=== PATIENT | male | born 1985 | race African-American/Black ===

== ENCOUNTER 2017-12-27 13:51 | Emergency (ER) | payer OTHER ==
[2017-12-27] MEDS ORDERED: IBUPROFEN 800 MG TABLET PO ONE (15:39)
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
[2017-12-27 16:08] VITALS: BP 117/67
== END 2017-12-27 16:06 | disposition home or self-care (01) ==
LOC: ER 13:51
DX: S29.012A Strain of muscle and tendon of back wall of thorax, initial encounter (principal); V49.50XA Passenger injured in collision with unspecified motor vehicles in traffic accident, initial encounter; F17.210 Nicotine dependence, cigarettes, uncomplicated; Z71.6 Tobacco abuse counseling
CPT/HCPCS: 99283; 99406

== ENCOUNTER 2018-11-19 13:00 | Emergency (ER) | payer OTHER ==
[2018-11-19] MEDS ORDERED: METOCLOPRAMIDE HCL INJ/PF 10 MG/2 ML SDV IM ONE (14:09)
[2018-11-19] MEDS ORDERED: DICYCLOMINE HCL INJ 20 MG/2 ML AMPULE IM ONE (14:09)
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
[2018-11-19 14:36] LABS: ABSOLUTE EOSINOPHILS # (AUTO) 0.1 10^3/uL (0.0-0.6); ABSOLUTE LYMPHOCYTES (AUTO) 1.3 10^3/uL (0.5-4.7); ABSOLUTE MONOCYTES (AUTO) 0.4 10^3/uL (0.1-1.4); ABSOLUTE NEUT (AUTO) 6.3 10^3/uL (1.7-8.2); BASOPHILS % (AUTO) 0.6 % (0-2); EOSINOPHILS % (AUTO) 0.7 % (0-6); HEMATOCRIT 49.9 % (37.9-51.0); HEMOGLOBIN 17.3 g/dL (13.5-17.0); LYMPHOCYTES % (AUTO) 16.3 % (13-45); MEAN CORPUSCULAR HEMOGLOBIN 31.6 pg (27.0-33.4); MEAN CORPUSCULAR HGB CONC 34.6 g/dL (32.0-36.0); MEAN CORPUSCULAR VOLUME 91 fl (80-97); MONOCYTES % (AUTO) 5.1 % (3-13); PLATELET COUNT 314 10^3/uL (150-450); RED BLOOD COUNT 5.47 10^6/uL (4.35-5.55); RED CELL DISTRIBUTION WIDTH 13.4 % (11.5-14.0); SEGMENTED NEUTROPHILS % (AUTO) 77.3 % (42-78); TOTAL CELLS COUNTED % (AUTO) 100 %; WHITE BLOOD COUNT 8.2 10^3/uL (4.0-10.5)
[2018-11-19 14:54] LABS: ALANINE AMINOTRANSFERASE 33 U/L (21-72); ALBUMIN 4.8 g/dL (3.5-5.0); ALKALINE PHOSPHATASE 92 U/L (38-126); ANION GAP 14 (5-19); ASPARTATE AMINO TRANSFERASE 22 U/L (17-59); BILIRUBIN,DIRECT 0.3 mg/dL (0.0-0.4); BILIRUBIN,TOTAL 0.8 mg/dL (0.2-1.3); BLOOD UREA NITROGEN 14 mg/dL (7-20); CALCIUM 10.3 mg/dL (8.4-10.2); CARBON DIOXIDE 25 mmol/L (22-30); CHLORIDE 99 mmol/L (98-107); GLUCOSE 115 mg/dL (75-110); LIPASE 51.2 U/L (23-300); POTASSIUM 4.6 mmol/L (3.6-5.0); SODIUM 138.2 mmol/L (137-145); TOTAL PROTEIN 8.6 g/dL (6.3-8.2)
[2018-11-19] MEDS ORDERED: NORMAL SALINE 1000 ML 1,000 ML IV ONE (14:55)
[2018-11-19] MEDS ORDERED: ONDANSETRON HCL INJ/PF 4 MG/2 ML SDV IV ONE (15:11)
[2018-11-19] MEDS ORDERED: FAMOTIDINE INJ/PF 20 MG/2 ML SDV IV ONE (15:11)
[2018-11-19] MEDS ORDERED: SUCRALFATE SUSP 1 GM/10 ML UDCUP PO ONE (15:12)
--- NOTE | 2018-11-19 15:39 | ER Document Report ---
ED General - General Chief Complaint: Vomiting Stated Complaint: VOMITING Time Seen by Provider: 11/19/18 14:05 Notes: Patient is a 33-year-old male presents to the emergency department complaining of generalized abdominal pains for the last 2 days. Patient states he has a total of 4 episodes of vomiting today nonbloody. Patient denies any diarrhea, fever, dysuria, trauma or injury to his abdomen. Patient states his girlfriend is also at home with similar vomiting symptoms. Past medical history: None Medications: None Allergies: None Surgical history: None TRAVEL OUTSIDE OF THE [place] IN LAST 30 DAYS: No - Related Data Allergies/Adverse Reactions: No Known Allergies Allergy (Verified 11/19/18 14:55) Past Medical History - General Information source: Patient - Social History Smoking Status: Current Every Day Smoker Chew tobacco use (# tins/day): No Frequency of alcohol use: None Drug Abuse: None Family History: None. denies: Arthritis, CAD, COPD, CVA, DM, Hyperlipidemia, Hypertension, Malignancy, Thyroid Disfunction Patient has suicidal ideation: No Patient has homicidal ideation: No Renal/ Medical History: Denies: Hx Peritoneal Dialysis GI Medical History: Reports: Hx Gastroesophageal Reflux Disease Musculoskeletal Medical History: Reports Hx Musculoskeletal Trauma - Fractured right arm Traumatic Medical History: Reports: Hx Fractures - Right arm Infectious Medical History: Denies: Hx MRSA Past Surgical History: Reports: Hx Orthopedic Surgery - R arm both bones broken - Immunizations Immunizations up to date: Yes Hx Diphtheria, Pertussis, Tetanus Vaccination: Yes Review of Systems - Review of Systems Constitutional: See HPI EENT: No symptoms reported Cardiovascular: No symptoms reported Respiratory: No symptoms reported Gastrointestinal: See HPI Genitourinary: See HPI Male Genitourinary: No symptoms reported Musculoskeletal: No symptoms reported Skin: No symptoms reported Hematologic/Lymphatic: No symptoms reported Neurological/Psychological: No symptoms reported Physical Exam - Vital signs Vitals: Temp Pulse Resp BP Pulse Ox 98.2 F 73 20 140/83 H 100 11/19/18 13:43 11/19/18 13:43 11/19/18 13:43 11/19/18 13:43 11/19/18 13:43 - Notes Notes: GENERAL: Alert, interacts well. Actively vomiting HEAD: Normocephalic, atraumatic. EYES: Pupils equal, round, and reactive to light. Extraocular movements intact. ENT: Oral mucosa moist, tongue midline. NECK: Full range of motion. Supple. Trachea midline. LUNGS: Clear to auscultation bilaterally, no wheezes, rales, or rhonchi. No respiratory distress. HEART: Regular rate and rhythm. No murmur ABDOMEN: Soft, Non-distended. Bowel sounds present in all 4 quadrants. No Kemp sign noted, no McBurney's point tenderness. Patient does have left upper quadrant pain upon palpation Minor epigastric pain upon palpation. EXTREMITIES: Moves all 4 extremities spontaneously. No edema, normal radial and dorsalis pedis pulses bilaterally. No cyanosis. BACK: no cervical, thoracic, lumbar midline tenderness. No saddle anesthesia, normal distal neurovascular exam. No CVA tenderness bilaterally NEUROLOGICAL: Alert and oriented x3. Normal speech. cranial nerves II through XII grossly intact PSYCH: Normal affect, normal mood. SKIN: Warm, dry, normal turgor. No rashes or lesions noted. Course - Re-evaluation Re-evalutation: 11/19/18 15:38 Patient was given Bentyl and Reglan by the [facility] provider. Upon my examination patient is actively vomiting. Zofran ordered along with other treatment modalities. Will reassess. 11/19/18 18:06 After Zofran, Carafate, Pepcid patient has had no more further episodes of vomiting. After medication and fluid administration he states he feels overall better. Discussed home use of Zofran and Carafate, follow-up with primary care provider. Patient stable for discharge. 11/19/18 18:10 Patient's labs show no signs of leukocytosis, no signs of anemia, no elevation in patient's lipase. Patient's labs also show no abnormalities with his sodium or potassium. - Vital Signs Vital signs: Temp Pulse Resp BP Pulse Ox 98.2 F 73 20 140/83 H 100 11/19/18 13:43 11/19/18 13:43 11/19/18 13:43 11/19/18 13:43 11/19/18 13:43 - Laboratory Result Diagrams: 11/19/18 14:23 11/19/18 14:23 Laboratory results interpreted by me: 11/19/18 11/19/18 14:23 14:23 Hgb 17.3 H Glucose 115 H Calcium 10.3 H Total Protein 8.6 H Discharge - Discharge Clinical Impression: Vomiting Qualifiers: Vomiting type: unspecified Vomiting Intractability: non-intractable Nausea presence: with nausea Qualified Code(s): R11.2 - Nausea with vomiting, unspecified Abdominal pain Qualifiers: Abdominal location: left upper quadrant Qualified Code(s): R10.12 - Left upper quadrant pain Gastritis Qualifiers: Gastritis type: unspecified gastritis Chronicity: acute Gastritis bleeding: presence of bleeding unspecified Qualified Code(s): K29.00 - Acute gastritis without bleeding Condition: Stable Disposition: HOME, SELF-CARE Instructions: Antinausea Medication ([facility]), Abdominal Pain ([facility]), Intravenous (IV) Fluids ([facility]), Vomiting ([facility]) Additional Instructions: As we discussed you have been seen and treated in the emergency department for your vomiting and upper left quadrant abdominal pain. This is likely due to gastritis. Please take medications as prescribed. Please try to stay well- hydrated. His follow-up with your primary care provider in the next 24 hours. Please return to the emergency room for any other concerning symptoms Prescriptions: Ondansetron HCl [Zofran 4 mg Tablet] 1 - 2 tab PO Q4H PRN #15 tablet PRN Reason: Sucralfate [Carafate 1 gm Tablet] 1 gm PO QID #20 tablet
[2018-11-19 18:19] VITALS: BP 140/85
== END 2018-11-19 18:41 | disposition home or self-care (01) ==
LOC: ER 13:00
DX: K29.00 Acute gastritis without bleeding (principal); R11.2 Nausea with vomiting, unspecified; R10.12 Left upper quadrant pain; R10.84 Generalized abdominal pain; F17.200 Nicotine dependence, unspecified, uncomplicated
CPT/HCPCS: 99284; 96372; 96361; 96374; 96375; 36415; 83690; 85025; 80053; J0500; J2765; J2405; J7030; S0028

== ENCOUNTER 2019-11-16 10:30 | Emergency (ER) | payer SELFPAY ==
--- NOTE | 2019-11-16 11:31 | ER Document Report ---
HPI - HPI Time Seen by Provider: 11/16/19 11:25 Pain Level: 5 Context: Patient is a 34-year-old male who presents to the emergency department with a chief complaint of a sore throat. His sore throat started yesterday. This morning he woke up and noticed some white spots on his tonsils. He denies any fever, cough, congestion, or any other symptoms. Denies any past medical history. - EENT EENT: REPORTS: Sore Throat, Congestion. DENIES: Ear Pain, Nasal Drainage-Clear, Nasal Drainage-Purulent, Eye problems - NEURO Neurology: DENIES: Headache - CARDIOVASCULAR Cardiovascular: DENIES: Chest pain - RESPIRATORY Respiratory: DENIES: Trouble Breathing, Coughing - GASTROINTESTINAL Gastrointestinal: DENIES: Nausea, Patient vomiting - REPRODUCTIVE Reproductive: DENIES: : - MUSCULOSKELETAL Musculoskeletal: DENIES: Extremity pain - DERM Skin Color: Normal Skin Problems: None Past Medical History - Social History Smoking Status: Current Every Day Smoker Chew tobacco use (# tins/day): No Frequency of alcohol use: None Drug Abuse: None Family History: None. denies: Arthritis, CAD, COPD, CVA, DM, Hyperlipidemia, Hypertension, Malignancy, Thyroid Disfunction Patient has suicidal ideation: No Patient has homicidal ideation: No Renal/ Medical History: Denies: Hx Peritoneal Dialysis GI Medical History: Reports: Hx Gastroesophageal Reflux Disease Musculoskeletal Medical History: Reports Hx Musculoskeletal Trauma - Fractured right arm Traumatic Medical History: Reports: Hx Fractures - Right arm Infectious Medical History: Denies: Hx MRSA Past Surgical History: Reports: Hx Orthopedic Surgery - R arm both bones broken - Immunizations Immunizations up to date: Yes Hx Diphtheria, Pertussis, Tetanus Vaccination: Yes Vertical Provider Document - CONSTITUTIONAL Agree With Documented VS: Yes Exam Limitations: No Limitations General Appearance: No Apparent Distress - INFECTION CONTROL TRAVEL OUTSIDE OF THE [place] IN LAST 30 DAYS: No - HEENT HEENT: Atraumatic, Normocephalic, PERRLA, Pharyngeal Exudate, Pharyngeal Tenderness, Pharyngeal Erythema. negative: Conjuctival Injection, Tympanic Membrane Red, Tympanic Membrane Bulging - NECK Neck: Normal Inspection - RESPIRATORY Respiratory: Breath Sounds Normal, No Respiratory Distress - CARDIOVASCULAR Cardiovascular: Regular Rhythm Pulses: Normal: Radial - MUSCULOSKELETAL/EXTREMETIES Musculoskeletal/Extremeties: FROM - NEURO Level of Consciousness: Awake, Alert, Appropriate - DERM Integumentary: Warm, Dry, No Rash Course - Re-evaluation Re-evalutation: Presentation of several days of sore throat in an otherwise well-appearing patient. Rapid strep is positive. History and exam are not consistent with a retropharyngeal abscess or peritonsillar abscess. Airway is patent. No difficulty handling oral secretions. Vitals within normal limits. Patient has been treated with an IM dose of penicillin and Decadron. At this time will discharge with return precautions and follow-up recommendations. Verbal disch arge instructions given a the bedside and opportunity for questions given. Medication warnings reviewed. Patient is in agreement with this plan and has verbalized understanding of return precautions and the need for primary care follow-up in the nex - Vital Signs Vital signs: Temp Pulse Resp BP Pulse Ox 98.4 F 84 16 144/78 H 99 11/16/19 10:43 11/16/19 10:43 11/16/19 10:43 11/16/19 10:43 11/16/19 10:43 Discharge - Discharge Clinical Impression: Exudative pharyngitis, Strep pharyngitis Condition: Stable Disposition: HOME, SELF-CARE Instructions: Sore Throat ([facility]) Additional Instructions: You have been diagnosed with pharyngitis based on a positive strep test. You have been treated with a dose of penicillin here in the emergency department and do not need any additional antibiotics. You have also been given a dose of steroids to help with your throat discomfort. Please continue to take ibuprofen 600 mg every 6 hours or Tylenol 1000 mg every 6 hours as needed for throat discomfort. You can also gargle with salt water. Continue to drink plenty of fluids. Follow-up with your primary care doctor in the next several days. Return if you become unable to swallow, have difficulty breathing, pass out, have persistent vomiting that prevents you from being able to tolerate fluids, or have any other symptoms that are concerning to you. Referrals: [facility] [Provider Group] - Follow up in 1 week [facility] [Provider Group] - Follow up in 1 week
[2019-11-16] MEDS ORDERED: PENICILLIN G BENZATHINE 1.2 MILLION UNIT/2 ML DISP.SYRIN IM ONE (12:01)
[2019-11-16] MEDS ORDERED: DEXAMETHASONE SOD PHOS INJ 10 MG/1 ML VIAL IM ONE (12:02)
[2019-11-16 12:22] VITALS: BP 147/84
== END 2019-11-16 12:22 | disposition home or self-care (01) ==
LOC: ER 10:30
DX: J02.0 Streptococcal pharyngitis (principal); R68.89 Other general symptoms and signs; F17.200 Nicotine dependence, unspecified, uncomplicated
CPT/HCPCS: 99283; 96372; 87880; J0561; J1100

== ENCOUNTER 2020-06-05 11:47 | Emergency (ER) | payer SELFPAY ==
--- NOTE | 2020-06-05 12:26 | ER Document Report ---
ED Medical Screen (RME) - General Chief Complaint: Abdominal Pain Stated Complaint: ABDOMINAL PAIN Time Seen by Provider: 06/05/20 12:23 Mode of Arrival: Ambulatory Information source: Patient Notes: Patient is a 34-year-old male comes emergency room with a 4-day onset of discomfort with urination. Patient said is more the lower abdominal pain and discomfort and it is dysuria. He denies any pain with urination or midstream more at the end of stream. He states when he gets up in the morning it is a tenderness across the lower abdominal and suprapubic area. Patient states he only has 1 sexual partner but was leaning towards the idea of possibility of an STD. Patient states he is not sure. Denies any other medical problems. Currently takes no medications. He also denies any discharge from the end of the penis. Physical examination: Patient is a well-nourished well-developed 34-year-old male no apparent distress on examination today. Cardiac: Regular rate and rhythm with no murmurs auscultated. Lungs: Bilateral breath sounds with breath sounds increased clear to auscultation. Abdomen: Patient displays bowel sounds in all 4 quadrants in a sitting position. Difficult to ascertain any tenderness on palpation secondary to sitting position. Further evaluation will need to be performed in back in a supine position. I have greeted and performed a rapid initial assessment of this patient. A comprehensive ED assessment and evaluation of the patient, analysis of test results and completion of the medical decision making process will be conducted by additional ED providers. Dictation of this chart was performed using voice recognition software; therefore, there may be some unintended grammatical errors. TRAVEL OUTSIDE OF THE [place] IN LAST 30 DAYS: No - Related Data Allergies/Adverse Reactions: No Known Allergies Allergy (Verified 06/05/20 12:16) Past Medical History Renal/ Medical History: Denies: Hx Peritoneal Dialysis GI Medical History: Reports: Hx Gastroesophageal Reflux Disease Musculoskeltal Medical History: Reports Hx Musculoskeletal Trauma - Fractured right arm Traumatic Medical History: Reports: Hx Fractures - Right arm Infectious Medical History: Denies: Hx MRSA Past Surgical History: Reports: Hx Orthopedic Surgery - R arm both bones broken - Immunizations Immunizations up to date: Yes Hx Diphtheria, Pertussis, Tetanus Vaccination: Yes Physical Exam - Vital signs Vitals: Temp Pulse Resp BP Pulse Ox 98.0 F 75 18 144/78 H 100 06/05/20 11:51 06/05/20 11:51 06/05/20 11:51 06/05/20 11:51 06/05/20 11:51 Course - Vital Signs Vital signs: Temp Pulse Resp BP Pulse Ox 98.0 F 75 18 144/78 H 100 06/05/20 11:51 06/05/20 11:51 06/05/20 11:51 06/05/20 11:51 06/05/20 11:51
[2020-06-05 13:04] LABS: ABSOLUTE BASOPHILS # (AUTO) 0.1 10^3/uL (0.0-0.2); ABSOLUTE EOSINOPHILS # (AUTO) 0.6 10^3/uL (0.0-0.6); ABSOLUTE LYMPHOCYTES (AUTO) 2.6 10^3/uL (0.5-4.7); ABSOLUTE MONOCYTES (AUTO) 0.7 10^3/uL (0.1-1.4); ABSOLUTE NEUT (AUTO) 3.2 10^3/uL (1.7-8.2); BASOPHILS % (AUTO) 0.9 % (0-2); EOSINOPHILS % (AUTO) 7.8 % (0-6); HEMATOCRIT 44.6 % (37.9-51.0); HEMOGLOBIN 15.4 g/dL (13.5-17.0); MEAN CORPUSCULAR HEMOGLOBIN 31.9 pg (27.0-33.4); MEAN CORPUSCULAR HGB CONC 34.4 g/dL (32.0-36.0); MEAN CORPUSCULAR VOLUME 93 fl (80-97); PLATELET COUNT 253 10^3/uL (150-450); RED BLOOD COUNT 4.81 10^6/uL (4.35-5.55); RED CELL DISTRIBUTION WIDTH 13.6 % (11.5-14.0); SEGMENTED NEUTROPHILS % (AUTO) 45.3 % (42-78); TOTAL CELLS COUNTED % (AUTO) 100 %; WHITE BLOOD COUNT 7.1 10^3/uL (4.0-10.5)
[2020-06-05 13:15] LABS: ALBUMIN 4.2 g/dL (3.5-5.0); ALKALINE PHOSPHATASE 70 U/L (38-126); ASPARTATE AMINO TRANSFERASE 20 U/L (17-59); BILIRUBIN,TOTAL 0.3 mg/dL (0.2-1.3); BLOOD UREA NITROGEN 15 mg/dL (7-20); CALCIUM 9.6 mg/dL (8.4-10.2); GLUCOSE 92 mg/dL (75-110); POTASSIUM 4.1 mmol/L (3.6-5.0); TOTAL PROTEIN 7.2 g/dL (6.3-8.2)
[2020-06-05 13:20] LABS: APPEARANCE,URINE CLEAR; BILIRUBIN,URINE NEGATIVE (NEGATIVE); COLOR,URINE YELLOW; GLUCOSE, URINE NEGATIVE (NEGATIVE); KETONES,URINE NEGATIVE (NEGATIVE); LEUKOCYTE ESTERASE,URINE TRACE (NEGATIVE); NITRITE,URINE NEGATIVE (NEGATIVE); PROTEIN,URINE NEGATIVE (NEGATIVE); URINE SPECIFIC GRAVITY 1.026
[2020-06-05 13:22] LABS: CARBON DIOXIDE 27 mmol/L (22-30); CHLORIDE 105 mmol/L (98-107)
[2020-06-05 13:27] LABS: ANION GAP 6 (5-19)
[2020-06-05] MEDS ORDERED: CEFTRIAXONE INJ 250 MG VIAL IM ONE (13:43)
[2020-06-05] MEDS ORDERED: LIDOCAINE 1% INJ-PF (10 MG/ML) 30 ML SDV INJ ONE (13:43)
[2020-06-05] MEDS ORDERED: AZITHROMYCIN 250 MG TABLET PO ONE (13:44)
--- NOTE | 2020-06-05 13:50 | ER Document Report ---
ED GI/ - General Chief Complaint: Urinary Problem Stated Complaint: ABDOMINAL PAIN Time Seen by Provider: 06/05/20 12:23 Primary Care Provider: [facility] [Provider Group] - Follow up as needed Mode of Arrival: Ambulatory Information source: Patient Notes: Patient is a 34-year-old male who I originally saw in triage and is requested to leave. I have looked up his labs and we have had a long discussion. He primarily presented today with some suprapubic discomfort. He had denied any dysuria and after our conversation the possibility of having an STD was possible. Patient did do a dirty urine catch but does not want to wait for results and at the original discussion did not believe it is possible for STD pill we have gone into a longer stay secondary to patient changing his original complaint. Patient's original complaint was suprapubic tenderness with cramping early in the morning prior to first urination. He denied any discharge from the penis any testicular pain or swelling. TRAVEL OUTSIDE OF THE [place] IN LAST 30 DAYS: No - HPI Patient complains to provider of: Abdominal pain. No: Flank pain, Rodriguez catheter problem, Groin pain, Hematuria, Testicular pain Onset: Other - 3 to 4 days Timing/Duration: Gradual Quality of pain: Achy, Cramping Severity at maximum: Mild Severity in ED: Mild Pain Level: 1 Location: Suprapubic Sexual history: Active, Unprotected intercourse, STD exposure Associated symptoms: None Exacerbated by: Denies Relieved by: Denies Similar symptoms previously: No Recently seen / treated by doctor: No - Related Data Allergies/Adverse Reactions: No Known Allergies Allergy (Verified 06/05/20 12:16) Past Medical History - General Information source: Patient - Social History Smoking Status: Current Every Day Smoker Chew tobacco use (# tins/day): No Smoking Education Provided: Yes Frequency of alcohol use: None Drug Abuse: None Family History: None, Reviewed & Not Pertinent. denies: Arthritis, CAD, COPD, CVA, DM, Hyperlipidemia, Hypertension, Malignancy, Thyroid Disfunction Renal/ Medical History: Denies: Hx Peritoneal Dialysis GI Medical History: Reports: Hx Gastroesophageal Reflux Disease Musculoskeletal Medical History: Reports Hx Musculoskeletal Trauma - Fractured right arm Traumatic Medical History: Reports: Hx Fractures - Right arm Infectious Medical History: Denies: Hx MRSA Past Surgical History: Reports: Hx Orthopedic Surgery - R arm both bones broken - Immunizations Immunizations up to date: Yes Hx Diphtheria, Pertussis, Tetanus Vaccination: Yes Review of Systems - Review of Systems Constitutional: No symptoms reported EENT: No symptoms reported Cardiovascular: No symptoms reported Respiratory: No symptoms reported Gastrointestinal: No symptoms reported Genitourinary: See HPI, Pain. denies: Dysuria, Urgency Male Genitourinary: No symptoms reported Musculoskeletal: No symptoms reported Skin: No symptoms reported Hematologic/Lymphatic: No symptoms reported Neurological/Psychological: No symptoms reported -: Yes All other systems reviewed and negative Physical Exam - Vital signs Vitals: Temp Pulse Resp BP Pulse Ox 98.0 F 75 18 144/78 H 100 06/05/20 11:51 06/05/20 11:51 06/05/20 11:51 06/05/20 11:51 06/05/20 11:51 Interpretation: Hypertensive - Notes Notes: PHYSICAL EXAMINATION: GENERAL: Well-appearing, well-nourished and in no acute distress. HEAD: Atraumatic, normocephalic. EYES: Pupils equal round and reactive to light, extraocular movements intact, sclera anicteric, conjunctiva are normal. ENT: Nares patent, oropharynx clear without exudates. Moist mucous membranes. NECK: Normal range of motion, supple without lymphadenopathy LUNGS: Breath sounds clear to auscultation bilaterally and equal. No wheezes rales or rhonchi. HEART: Regular rate and rhythm without murmurs ABDOMEN: Soft, nontender, nondistended abdomen. No guarding, no rebound. No masses appreciated. Musculoskeletal: Normal range of motion, no pitting or edema. No cyanosis. : Examination patient's genitals shows positive cremaster bilaterally. No discharge noted. Normal-appearing testicles. Nontender to palpate. NEUROLOGICAL: Normal speech, normal gait. Normal sensory, motor exams PSYCH: Normal mood, normal affect. SKIN: Warm, Dry, normal turgor, no rashes or lesions noted. Course - Re-evaluation Re-evalutation: 06/05/20 13:50 After patient had his labs drawn and urine done. He was waiting he decided he did not want to wait any further. I wanted to talk to him and he actually stated that he had been exposed possible STD. He requested just being treated. I explained to the patient that if he only gets treated that he can continue to pass back and forth of its positive. I suggested to him to come back on Sunday and get his results since I am treating him he will not be able call back if it is positive. Also informed him that his partner should also be tested and treated as well and for him not to have intercourse until 10 days after treatment. - Vital Signs Vital signs: Temp Pulse Resp BP Pulse Ox 98.0 F 56 L 16 140/83 H 100 06/05/20 13:56 06/05/20 13:56 06/05/20 13:56 06/05/20 13:56 06/05/20 13:56 - Laboratory Result Diagrams: 06/05/20 12:25 06/05/20 12:25 Laboratory results interpreted by me: 06/05/20 06/05/20 06/05/20 12:25 12:25 12:25 Eos % (Auto) 7.8 H Urine Urobilinogen 2.0 H Ur Leukocyte Esterase TRACE H Chlamydia DNA (PCR) DETECTED H N.gonorrhoeae DNA (PCR) DETECTED H Discharge - Discharge Clinical Impression: Possible exposure to STD Condition: Stable Disposition: HOME, SELF-CARE Additional Instructions: You are possibly treated for a sexually transmitted disease exposure. AZITHROMYCIN: Azithromycin (Zithromax) is a broad spectrum antibiotic in the same class as erythromycin. It can treat a variety of bacterial infections, but is most frequently used for respiratory infections. Azithromycin is extremely long-lasting. It accumulates in body tissues and continues to kill bacteria for many days. In order to improve absorption, Azithromycin should be taken at least one hour before or two hours after a meal. It does not have the same strong tendency to upset the stomach as erythromycin and is usually very well tolerated. Patients who have had a rash or other true allergic reactions to erythromycin should not take this medication. Call if you develop gastrointestinal distress, severe diarrhea, rash, hives, itching, or shortness of breath. FOLLOW-UP CARE: If you have been referred to a physician for follow-up care, call the physicians office for an appointment as you were instructed or within the next two days. If you experience worsening or a significant change in your symptoms, notify the physician immediately or return to the Emergency Department at any time for re-evaluation. Also as we discussed you will probably need to come by medical records on Sunday or Sunday to get the results of your test. If it is negative you still need to have your partner checked and also possibly treated. And as we also discussed you should not have intercourse at least until 10 days after your treatment and your partners treatment. Should any concerns or problems return to ER for recheck Forms: Smoking Cessation Education, Elevated Blood Pressure Referrals: [facility] [Provider Group] - Follow up as needed
[2020-06-05 13:58] VITALS: BP 140/83
[2020-06-05 14:33] LABS: CHLAM PCR DETECTED (NOT DETECT)
== END 2020-06-05 14:05 | disposition home or self-care (01) ==
LOC: ER 11:47
DX: R10.9 Unspecified abdominal pain (principal); F17.200 Nicotine dependence, unspecified, uncomplicated; Z20.2 Contact with and (suspected) exposure to infections with a predominantly sexual mode of transmission
CPT/HCPCS: 99283; 96372; 36415; 82570; 85025; 80053; 81001; 87491; 87591; J3490; J0696